=== PATIENT | male | born 1980 | race Caucasian/White ===

== ENCOUNTER 2016-12-17 14:29 | Inpatient (IN) | payer BC ==
[2016-12-17] MEDS ORDERED: HYDROmorphone 1 MG/ML SYRINGE IVP STA (15:45)
[2016-12-17] MEDS ORDERED: HYDROmorphone 1 MG/ML SYRINGE ONE (15:57)
[2016-12-17] MEDS ORDERED: ACETAMINOPHEN 1,000 MG/100 ML 100 ML IV STA (16:35)
[2016-12-17] MEDS ORDERED: ACETAMINOPHEN 1,000 MG/100 ML 100 ML IV ONE (16:46)
[2016-12-17] MEDS ORDERED: IOPAMIDOL-300 100 ML VIAL IVP ONE (17:06)
[2016-12-17] MEDS ORDERED: SODIUM CHLORIDE 0.9% 1,000 ML IV ONE (17:25)
[2016-12-17] MEDS ORDERED: PIPERACILLIN/TAZOBACTAM 3.375 GM in SODIUM CHLORIDE 0.9% MINIBAG 100 ML IV STA (17:53)
[2016-12-17] MEDS ORDERED: ACETAMINOPHEN 1,000 MG/100 ML VIAL IV ONE (20:00)
[2016-12-17] MEDS ORDERED: fentaNYL 100 MCG/2 ML VIAL IVP ONE (20:00)
[2016-12-17] MEDS ORDERED: MIDAZOLAM 2 MG/2 ML VIAL IVP ONE (20:00)
[2016-12-17] MEDS ORDERED: HYDROmorphone 1 MG/ML SYRINGE IVP ONE (20:00)
[2016-12-17] MEDS ORDERED: PROPOFOL 200 MG/20 ML VIAL IVP ONE (20:00)
[2016-12-17] MEDS ORDERED: LIDOCAINE-MPF 2% 5 ML VIAL IM ONE (20:00)
[2016-12-17] MEDS ORDERED: NEOSTIGMINE 1 MG/1 ML 10 ML MDV IVP ONE (20:00)
[2016-12-17] MEDS ORDERED: ROCURONIUM 50 MG/5 ML VIAL IVP ONE (20:00)
[2016-12-17] MEDS ORDERED: ONDANSETRON 4 MG/2 ML VIAL IVP ONE (20:00)
[2016-12-17] MEDS ORDERED: DEXAMETHASONE 4 MG/ML VIAL IVP ONE (20:00)
[2016-12-17] MEDS ORDERED: GLYCOPYRROLATE 1 MG/5 ML VIAL IVP ONE (20:00)
[2016-12-17] MEDS ORDERED: BUPIVACAINE 0.5% PF 30 ML VIAL SUBQ ONE (20:32)
[2016-12-17] MEDS ORDERED: LACTATED RINGERS 1,000 ML IV ONE (20:32)
[2016-12-18] MEDS ORDERED: SODIUM CHLORIDE FLUSH 0.9% 10 ML SYRINGE IVP PRN (00:13)
[2016-12-18] MEDS ORDERED: ONDANSETRON 4 MG/2 ML VIAL IVP PRN ×2 (00:13→01:42)
[2016-12-18] MEDS ORDERED: HYDROmorphone 1 MG/ML SYRINGE IVP PRN (00:13)
[2016-12-18] MEDS ORDERED: D5NS W/20 MEQ KCL 1,000 ML IV SCH (01:00)
[2016-12-18] MEDS: fentaNYL 100 MCG/2 ML VIAL ONE ×2 (01:06→01:18)
[2016-12-18] MEDS: HYDROmorphone 1 MG/ML SYRINGE IVP PRN ×8 (02:21→23:51)
[2016-12-18] MEDS: D5NS W/20 MEQ KCL 1,000 ML IV SCH ×3 (02:22→22:59)
[2016-12-18] MEDS: SODIUM CHLORIDE FLUSH 0.9% 10 ML SYRINGE IVP SCH ×3 (05:57→21:05)
[2016-12-18] MEDS: PIPERACILLIN/TAZOBACTAM 3.375 GM in SODIUM CHLORIDE 0.9% MINIBAG 100 ML IV SCH ×4 (05:57→23:51)
[2016-12-18] MEDS ORDERED: SODIUM CHLORIDE FLUSH 0.9% 10 ML SYRINGE IVP SCH (06:00)
[2016-12-18] MEDS: PANTOPRAZOLE 40 MG VIAL IVP SCH (06:17)
[2016-12-18] MEDS: SODIUM CHLORIDE FLUSH 0.9% 10 ML SYRINGE IVP PRN (23:52)
[2016-12-19] MEDS: HYDROmorphone 1 MG/ML SYRINGE IVP PRN ×6 (04:05→22:24)
[2016-12-19] MEDS: SODIUM CHLORIDE FLUSH 0.9% 10 ML SYRINGE IVP SCH ×4 (06:20→22:26)
[2016-12-19] MEDS: PIPERACILLIN/TAZOBACTAM 3.375 GM in SODIUM CHLORIDE 0.9% MINIBAG 100 ML IV SCH ×3 (06:35→18:43)
[2016-12-19] MEDS: SODIUM CHLORIDE FLUSH 0.9% 10 ML SYRINGE IVP PRN (06:35)
[2016-12-19] MEDS: PANTOPRAZOLE 40 MG VIAL IVP SCH (06:35)
[2016-12-19] MEDS: D5NS W/20 MEQ KCL 1,000 ML IV SCH (10:00)
[2016-12-19] MEDS ORDERED: SODIUM CHLORIDE FLUSH 0.9% 10 ML SYRINGE IVP PRN (17:53)
[2016-12-20] MEDS: D5NS W/20 MEQ KCL 1,000 ML IV SCH ×3 (00:05→22:26)
[2016-12-20] MEDS: PIPERACILLIN/TAZOBACTAM 3.375 GM in SODIUM CHLORIDE 0.9% MINIBAG 100 ML IV SCH ×4 (00:06→18:15)
[2016-12-20] MEDS: HYDROmorphone 1 MG/ML SYRINGE IVP PRN ×6 (05:29→22:26)
[2016-12-20] MEDS: PANTOPRAZOLE 40 MG VIAL IVP SCH (06:54)
[2016-12-20] MEDS: SODIUM CHLORIDE FLUSH 0.9% 10 ML SYRINGE IVP SCH ×6 (07:01→20:32)
[2016-12-21] MEDS: PIPERACILLIN/TAZOBACTAM 3.375 GM in SODIUM CHLORIDE 0.9% MINIBAG 100 ML IV SCH ×2 (00:06→06:43)
[2016-12-21] MEDS: HYDROmorphone 1 MG/ML SYRINGE IVP PRN ×3 (00:07→06:44)
[2016-12-21] MEDS: SODIUM CHLORIDE FLUSH 0.9% 10 ML SYRINGE IVP SCH ×4 (01:29→17:01)
[2016-12-21] MEDS: PANTOPRAZOLE 40 MG VIAL IVP SCH (06:47)
[2016-12-21] MEDS: oxyCOD/ACETAMIN 5 MG/325 MG TABLET PO PRN ×2 (11:49→20:16)
[2016-12-21] MEDS: D5NS W/20 MEQ KCL 1,000 ML IV SCH (12:04)
[2016-12-22] MEDS: SODIUM CHLORIDE FLUSH 0.9% 10 ML SYRINGE IVP SCH ×4 (17:28→17:29)
[2016-12-22] MEDS: D5NS W/20 MEQ KCL 1,000 ML IV SCH (17:29)
[2016-12-22] MEDS: PANTOPRAZOLE 40 MG VIAL IVP SCH (17:29)
== END 2016-12-22 11:30 | disposition home or self-care (01) | DRG 330 ==
PROC: 0DBH4ZZ Excision of Cecum, Percutaneous Endoscopic Approach (ICD-10-PCS; principal; 2016-12-17 20:00)
PROC: 0DNH4ZZ Release Cecum, Percutaneous Endoscopic Approach (ICD-10-PCS; principal; 2016-12-17 20:00)
PROC: 0DTF0ZZ Resection of Right Large Intestine, Open Approach (ICD-10-PCS; principal; 2016-12-17 20:00)
DX: K35.3 Acute appendicitis with localized peritonitis (principal); Z68.41 Body mass index [BMI] 40.0-44.9, adult; K66.0 Peritoneal adhesions (postprocedural) (postinfection); E66.9 Obesity, unspecified; Z87.891 Personal history of nicotine dependence

== ENCOUNTER 2017-11-11 23:52 | Emergency (ER) | payer BC, OTHER ==
[2017-11-12] MEDS ORDERED: DEXAMETHASONE 10 MG/ML VIAL PO STA (00:13)
[2017-11-12] MEDS ORDERED: KETOROLAC 60 MG/2 ML VIAL IM STA (00:13)
--- NOTE | 2017-11-12 00:16 | ED Physician Documentation ---
History of Present Illness - Stated complaint Stated Complaint: LT KNEE PAIN - Chief complaint Chief Complaint: Ext Problem - History obtained from History obtained from: Patient - History of Present Illness Timing: How many days ago (5) - Additonal information Additional information: 37-year-old male has had a recurrence of knee pain which has developed a follow- up 5 days ago. He has had some swelling of the knee he has had worsening of the pain and he usually has this resolved at about for 5 days. Today the pain has been bad enough that he was not able to sleep last night and is unable to even get into his car without having to assist his leg into the car. 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 He has had episodes of pain more frequently this year than previously and in the past she has had episodes about once per year it does involve either knee. Review of Systems Constitutional: denies: Fever Eyes: denies: Decreased vision Ears: denies: Ear pain Nose: denies: Congestion Throat: denies: Sore throat Cardiac: denies: Chest pain / pressure, Palpitations Respiratory: denies: Dyspnea, Cough GI: denies: Nausea, Vomiting : denies: Dysuria, Frequency Skin: denies: Rash Musculoskeletal: reports: Extremity pain, Joint pain, Joint swelling, Pain with weight bearing. denies: Neck pain, Back pain Neurologic: denies: Generalized weakness, Focal weakness, Numbness PD PAST MEDICAL HISTORY - Past Medical History Cardiovascular: None Respiratory: None Neuro: None Endocrine/Autoimmune: None GI: None : None HEENT: None Psych: None Musculoskeletal: None Derm: None - Past Surgical History Past Surgical History: Yes Ortho: Arthroscopic surgery - Present Medications Home Medications: Ambulatory Orders Medication Instructions Recorded Confirmed HYDROcod/ACETAM 5/325 [[place] 5/325] 1 - 2 ea PO Q6H PRN #15 tablet 11/12/17 - Allergies Allergies/Adverse Reactions: Allergies Allergy/AdvReac Type Severity Reaction Status Date / Time scallops Allergy Unknown Verified 11/11/17 23:58 - Social History Does the pt smoke?: Yes Smoking Status: Current some day smoker Does the pt drink ETOH?: Yes Does the pt have substance abuse?: No - Immunizations Immunizations are current?: No Immunizations: TDAP >10years/unknown - POLST Patient has POLST: No PD ED PE NORMAL - Vitals Vital signs reviewed: Yes (Tachycardic and hypertensive) - General General: Alert and oriented X 3, Well developed/nourished, Other (The patient appears to be in pain and is gasping for air periodically he is grasping a cane as well.) - HEENT HEENT: Atraumatic, PERRL - Respiratory Respiratory: No respiratory distress - Derm Derm: Normal color, Warm and dry, No rash - Extremities Extremities: Other (There is infrapatellar tendernessAnd joint effusion on the left knee. There is pain to range of motion the ligaments appear stable on testing.) - Neuro Neuro: No motor deficit, No sensory deficit Eye Opening: Spontaneous Motor: Obeys Commands Verbal: Oriented GCS Score: 15 - Psych Psych: Normal mood, Normal affect Results - Vitals Vitals: Vital Signs - 24 hr 11/11/ 23:55 Temperature 98.7 C H Heart Rate 111 H Respiratory 18 Rate Blood Pressure 147/95 H O2 Saturation 97 Oxygen O2 Source Room air - Rads (name of study) left knee Radiology: Prelim report reviewed (Impression: 1. No acute fracture or dislocation seen. 2. Mild degenerative joint disease and small joint effusion.) , EMP read indepedently, See rad report Procedures - Arthrocentesis Joint: Knee Preparation: Sterile prep and drape Anesthesia: Lidocaine 1% Fluid: Bloody, Sent for cell count, Sent for crystals, Sent for culture, Fluid obtained - cc (7), Sent for gram stain Aftercare: Dressing applied, No complications, Patient tolerated well PD MEDICAL DECISION MAKING - ED course Complexity details: reviewed old records, reviewed results, re-evaluated patient , considered differential, d/w patient ED course: 37-year-old male with left knee pain in a repeated pattern has a small joint effusion and this is tapped for crystal exam and shows a bloody tap. The patient is treated in the emergency department with Toradol and dexamethasone and with the procedure he has some relief of his pain. 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 The specimen submitted for cell count and crystal exam was a bloody sample that coagulated and we will not get results for crystal exam or cell count but the sample will be cultured. Departure - Departure Disposition: 01 Home, Self Care Clinical Impression: Reactive arthritis of knee Condition: Stable Instructions: ED Degenerative Joint Disease Follow-Up: [facility] [Provider Group] Prescriptions: HYDROcod/ACETAM 5/325 [[place] 5/325] 1 - 2 ea PO Q6H PRN #15 tablet PRN Reason: Pain Comments: Today in the Emergency Department your blood pressure was elevated. This can happen from the stress of the visit itself, from a current illness or circumstance or from uncontrolled hypertension. If you take blood pressure medications take your usual mediations, have your blood pressure re-checked in an appropriate setting and follow up any elevation with your primary care doctor. Forms: Activity restrictions
[2017-11-12] MEDS ORDERED: LIDOCAINE 1% 2 ML VIAL ONE (00:59)
--- NOTE | 2017-11-12 01:12 | XRAY Preliminary Report ---
Exam: XR KNEE 4 VIEW LT IMPRESSION: 1. No acute fracture or dislocation seen. 2. Mild degenerative joint disease and small joint effusion. [facility] SITE ID: [id number]
--- NOTE | 2017-11-12 01:15 | XRAY Report ---
EXAM: LEFT KNEE RADIOGRAPHY EXAM DATE: 11/12/2017 12:41 AM. CLINICAL HISTORY: Swelling and pain . COMPARISON: 09/23/2011. TECHNIQUE: 4 views. FINDINGS: Bones: No acute fracture seen. Joints: No dislocation. Mild degenerative joint disease in the patellofemoral compartment. Small join t effusion. Soft Tissues: Mild soft tissue swelling. IMPRESSION: 1. No acute fracture or dislocation seen. 2. Mild degenerative joint disease and small joint effusion. [facility] Referring Provider Line: [phone] SITE ID: [id number]
[2017-11-12] MEDS ORDERED: HYDROcod/ACET 5/325 Prepack 6 PO ONE (01:29)
[2017-11-12 01:38] VITALS: BP 141/90
== END 2017-11-12 01:37 | disposition home or self-care (01) ==
LOC: ED 23:52
DX: M17.12 Unilateral primary osteoarthritis, left knee (principal); R03.0 Elevated blood-pressure reading, without diagnosis of hypertension; F17.200 Nicotine dependence, unspecified, uncomplicated
CPT/HCPCS: 20600; 87070; 87205; 89051; 89060; 96372; 99283